=== PATIENT | male | born 1970 | race African-American/Black ===

== ENCOUNTER 2020-07-29 09:34 | Emergency (ER) | payer OTHER ==
[~2020-07-29] VITALS: Ht 170.2 cm; Wt 103.4 kg
[2020-07-29 11:09] VITALS: BP 125/71
[2020-07-29] MEDS ORDERED: IBUPROFEN 800 MG TAB PO ONE (12:00)
[2020-07-29] MEDS ORDERED: METHOCARBAMOL 500 MG TAB PO ONE (12:00)
== END 2020-07-29 13:36 | disposition home or self-care (01) ==
LOC: ER 09:34
DX: S39.012A Strain of muscle, fascia and tendon of lower back, initial encounter (principal); V49.9XXA Car occupant (driver) (passenger) injured in unspecified traffic accident, initial encounter; Y93.89 Activity, other specified; Y92.89 Other specified places as the place of occurrence of the external cause; Y99.8 Other external cause status
CPT/HCPCS: 72100